=== PATIENT | male | born 2000 | race Two or more races ===

== ENCOUNTER 2024-05-22 14:51 | Emergency (ER) | payer BC, SELFPAY ==
[2024-05-22 14:51] VITALS: BP 124/85; PULSE 102; RESP 18; TEMP 36.8; O2SAT 96
--- NOTE | 2024-05-22 14:59 | ED.URI ---
HPI - URI/Sore Throat General Chief Complaint: Upper Respiratory Infection Stated Complaint: sore throat Time Seen by Provider: 05/22/24 14:58 Source: patient Mode of arrival: ambulatory Limitations: no limitations History of Present Illness HPI Narrative: Patient is a 23-year-old male with cough and congestion of the upper chest and throat area. No shortness of breath. No chest pain. He is having fatigue. He has been sick for 4 days. MD elicited complaint: cough and nasal congestion Onset (ago): day(s) (4) Consistency: constant Severity: moderate Pain scale (0-10): 1 Description of mucous: clear, watery and yellow Able to tolerate fluids by mouth: Yes Exacerbating factors: nothing Relieving factors: nothing Associated symptoms: myalgias and nasal congestion Treatments prior to arrival: acetaminophen, ibuprofen and cold medicine Related Data Home Medications Medication Instructions Recorded Confirmed No Home Medications 02/25/22 02/17/23 Allergies Allergy/AdvReac Type Severity Reaction Status Date / Time pineapple Allergy Anaphylaxis Verified 02/17/23 08:08 shrimp Allergy Anaphylaxis Verified 02/17/23 08:08 Review of Systems Review of Systems: All systems reviewed & are unremarkable except as noted in HPI and below Constitutional: Constitutional: Reports no additional constitutional complaints Eyes: Eyes: Reports no additional eye complaints ENT: Reports system reviewed and no additional complaints, except as documented Cardiovascular: Cardiovascular: Reports no additional cardiovascular complaints Respiratory: Respiratory: Reports no additional respiratory complaints Gastrointestinal: Gastrointestinal: Reports no additional gastrointestinal complaints Genitourinary: Genitourinary: Reports no additional male genitourinary complaints Musculoskeletal: Musculoskeletal: Reports no additional musculoskeletal complaints Integumentary/Breasts: Skin/Breast: Reports system reviewed and no additional complaints, except as docu Neurologic: Reports system reviewed and no additional complaints, except as documented Psychiatric: Psychiatric: Reports no additional psychiatric complaints Endocrine: Endocrine: Reports no additional endocrine complaints Hematologic/Lymphatic: Hematologic/Lymphatic: Reports no additional hematologic/lymphatic complaints Allergic/Immunologic: Allergic/Immunologic: Reports no additional allergic/immunologic complaints PMFSH Social History Social History Smoking status: Current some day smoker Tobacco type: cigarettes and e-cigarettes/vaping Alcohol intake: current Substance use: current Substance use type: marijuana Exam Const: General: healthy appearing Nutritional Appearance: well nourished Orientation/consciousness: patient oriented x3 HENMT: Head: normal to inspection Ears: external ears normal Face/Nose/Sinus: Normal external nose present Eyes: Conjunctivae: conjunctivae normal Pupils: Equal, round and reactive pupils present EOM: EOMs intact bilaterally Neck: Neck: normal visual inspection Chest: Chest palpation & inspection: normal inspection of the chest Resp: Effort & Inspection: normal respiratory effort and not labored Auscultation: clear to auscultation bilaterally and no crackles Cardio: Rate: regular rate Rhythm: regular rhythm Heart sounds: no murmurs GI: Inspection: non-distended GI Palp: Yes Soft to palpation and No Tenderness to palpation present (GI) Auscultation: normal bowel sounds : General: Yes bladder normal to palpation Back/Spine/Pelvis: Back: no CVA tenderness Skin: General skin exam: normal color Rashes: no rashes Wounds: no wounds Neuro: General: patient oriented x3 Cranial nerves: Yes Nystagmus not present Speech: normal speech Extrem: General: normal to inspection Psych: Mental Status: mental status grossly normal Affect: normal affect Attitu
[2024-05-22 15:26] LABS: Strep Group A RT-PCR NOT DETECTED (Negative)
[2024-05-22 15:37] LABS: SARS-CoV-2 RNA PCR Positive (Negative)
[2024-05-22 15:42] LABS: Influenza A QL RT-PCR Negative (Negative); Influenza B QL RT-PCR Negative (Negative); RSV RNA, RT-PCR Negative (Negative)
== END 2024-05-22 15:52 | disposition home or self-care (01) ==
PROVIDERS: Emergency Provider Emergency Medicine; PCP Nurse Practitioner Family
DX: U07.1 COVID-19 (principal); F17.210 Nicotine dependence, cigarettes, uncomplicated
CPT/HCPCS: 87637; 87651; 99283

== ENCOUNTER 2025-01-15 03:18 | Emergency (ER) | payer SELFPAY ==
--- NOTE | ~2025-01-15 | XR_ITS ---
XR chest 1V Ordering provider: Santos Sandoval MD History: 24 years Male with . RIGHT SIDE CHEST PAIN X 2 DAYS. . Comparison: None. FINDINGS: MEDIASTINUM: The cardiac silhouette is not enlarged. LUNGS: No infiltrates, effusions or pneumothorax. OTHER: No free air under the diaphragm. IMPRESSION: No acute cardiopulmonary pathology. Reviewed, dictated and finalized at location A.
[2025-01-15 03:18] VITALS: BP 123/82; PULSE 72; RESP 18; TEMP 36.6; O2SAT 99
--- OUTSIDE RECORDS SUMMARY | 2025-01-15 03:21 | XMS_ITS | Encounter Summary ---
Author Organization [facility] Address [address] [place] [address] Care Team Providers Care Tape Weaver Name Role Phone None, Provider Primary Care Provider Unavaila ble Encounter Details Date Type Department Care Team (Late st Contact Info) Description 09/16/2021 Hospital Follow-up Call [facility] [address] [place] [address] Cherry Arauz RN Social History Tobacco Use Types Packs/Day Years Used Date Smoking Tobacco: Former Smokeless Tobacco: Never Alcohol Use Standard Drinks/Week Comments Never 0 (1 standard drink = 0.6 oz pur e alcohol) Sex and Gender Information Value Date Recorded Sex Assigned at Not on file Legal Sex Male 9:13 PM ANIMAL CARE GIVER Gender Identity Not on file Sexual Orientation Not on file COVID-19 Exposure Response Date Recorded In the last month, have you been in contact with someone who was confirmed or suspected to have Coronavirus / COVID-19? No / Unsure 09/13/2021 9:08 PM ANIMAL CARE GIVER documented as of this encounter Functional Status * RETIRED Are you deaf or do you have serious difficulty hearing Answer Date of Assessment Author Status No 09/13/2021 9:08 PM ANIMAL CARE GIVER Activ e * RETIRED Are you blind or do you have serious difficulty seeing, even when wearing glasses? Answer Date of Assessment Author Status No 09/13/2021 9:08 PM ANIMAL CARE GIVER Activ e * Do you have serious difficulty walking or climbing stairs? Answer Date of Assessment Author Status No 09/13/2021 9:08 PM ANIMAL CARE GIVER Lauren Lazcano R N Active * Do you have difficulty dressing or bathing? Answer Date of Assessment Author Status No 09/13/2021 9:08 PM ANIMAL CARE GIVER Lauren Lazcano R N Active * Because of a physical, mental, or emotional condition, do you have difficulty doing errands alone such as visiting a doctor's office or shopping? Answer Date of Assessment Author Status No 09/13/2021 9:08 PM ANIMAL CARE GIVER Lauren Lazcano R N Active documented as of this encounter Mental Status * Because of a physical, mental, or emotional condition, do you have serious difficulty concentrating, remembering, or making decisions? Answer Entry Date Author Status No 09/13/2021 9:08 PM ANIMAL CARE GIVER Lauren Lazcano R N Active documented in this encounter Plan of Treatment Not on file documented as of this encounter Visit Diagnoses Not on filedocumented in this encounter Additional Health Concerns Infection Onset Date Last Indicated Resolved Time COVID-19 Rule Out 08/14/2022 08/14/2022 08/14/2022 11:35 AM ANIMAL CARE GIVER Influenza - Seasonal 08/14/2022 08/14/2022 023 12:34 AM ANIMAL CARE GIVER documented as of this encounter Care Teams Tape Weaver Relationship Specialty Start Date End Date None, Provider, PCP - General 09/13/21 documented as of this encounter
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
[2025-01-15 03:30] VITALS: BP 111/75; PULSE 75; RESP 10; O2SAT 94
--- NOTE | 2025-01-15 03:36 | PC.NURSE ---
NOTIFIED DR MARRERO OF NEW PATIENT. VERBAL ORDER RECEIVED TO PLACE CHEST XRAY ORDER, DONE
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
--- NOTE | 2025-01-15 03:38 | PC.NURSE ---
YAZAN WITH RADIOLOGY AT THE BEDSIDE
--- NOTE | 2025-01-15 03:45 | PC.NURSE ---
DR MARRERO AT THE BEDSIDE
[2025-01-15] MEDS: KETOROLAC 30 MG/ML VIAL (*BKC) IM (04:03)
[2025-01-15 04:30] VITALS: BP 116/74; PULSE 72; RESP 16; O2SAT 99
== END 2025-01-15 04:30 | disposition home or self-care (01) ==
PROVIDERS: Emergency Provider Internal Medicine Critical Care Medicine; PCP Family Medicine
DX: S22.31XA Fracture of one rib, right side, initial encounter for closed fracture (principal); F17.210 Nicotine dependence, cigarettes, uncomplicated; X58.XXXA Exposure to other specified factors, initial encounter
CPT/HCPCS: 71045; 96372; 99283; J1885

== ENCOUNTER 2025-03-26 19:27 | Emergency (ER) | payer SELFPAY ==
[2025-03-26 19:30] VITALS: BP 143/97; PULSE 123; RESP 16; TEMP 37.9; O2SAT 94
--- OUTSIDE RECORDS SUMMARY | 2025-03-26 19:30 | XMS_ITS | Encounter Summary ---
Author Organization [facility] Address [address] [place] [address] Care Team Providers Care Manager Linux Name Role Phone None, Provider Primary Care Provider Unavaila ble Encounter Details Date Type Department Care Team (Late st Contact Info) Description 09/16/2021 Hospital Follow-up Call [facility] [address] [place] [address] Cherry Arauz RN Social History Tobacco Use Types Packs/Day Years Used Date Smoking Tobacco: Former Smokeless Tobacco: Never Alcohol Use Standard Drinks/Week Comments Never 0 (1 standard drink = 0.6 oz pur e alcohol) Sex and Gender Information Value Date Recorded Sex Assigned at Not on file Legal Sex Male 9:13 PM STOCK UNLOADER Gender Identity Not on file Sexual Orientation Not on file COVID-19 Exposure Response Date Recorded In the last month, have you been in contact with someone who was confirmed or suspected to have Coronavirus / COVID-19? No / Unsure 09/13/2021 9:08 PM STOCK UNLOADER documented as of this encounter Functional Status * RETIRED Are you deaf or do you have serious difficulty hearing Answer Date of Assessment Author Status No 09/13/2021 9:08 PM STOCK UNLOADER Activ e * RETIRED Are you blind or do you have serious difficulty seeing, even when wearing glasses? Answer Date of Assessment Author Status No 09/13/2021 9:08 PM STOCK UNLOADER Activ e * Do you have serious difficulty walking or climbing stairs? Answer Date of Assessment Author Status No 09/13/2021 9:08 PM STOCK UNLOADER Lauren Lazcano R N Active * Do you have difficulty dressing or bathing? Answer Date of Assessment Author Status No 09/13/2021 9:08 PM STOCK UNLOADER Lauren Lazcano R N Active * Because of a physical, mental, or emotional condition, do you have difficulty doing errands alone such as visiting a doctor's office or shopping? Answer Date of Assessment Author Status No 09/13/2021 9:08 PM STOCK UNLOADER Lauren Lazcano R N Active documented as of this encounter Mental Status * Because of a physical, mental, or emotional condition, do you have serious difficulty concentrating, remembering, or making decisions? Answer Entry Date Author Status No 09/13/2021 9:08 PM STOCK UNLOADER Lauren Lazcano R N Active documented in this encounter Plan of Treatment Not on file documented as of this encounter Visit Diagnoses Not on filedocumented in this encounter Additional Health Concerns Infection Onset Date Last Indicated Resolved Time COVID-19 Rule Out 08/14/2022 08/14/2022 08/14/2022 11:35 AM STOCK UNLOADER Influenza - Seasonal 08/14/2022 08/14/2022 023 12:34 AM STOCK UNLOADER documented as of this encounter Care Teams Manager Linux Relationship Specialty Start Date End Date None, Provider, PCP - General 09/13/21 documented as of this encounter
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
--- OUTSIDE RECORDS SUMMARY | 2025-03-26 19:54 | XMS_ITS | Encounter Summary ---
Author Organization [facility] Address [address] [place] [address] Care Team Providers Care Center Specialists Name Role Phone None, Provider Primary Care Provider Unavaila ble Encounter Details Date Type Department Care Team (Late st Contact Info) Description 09/16/2021 Hospital Follow-up Call [facility] [address] [place] [address] Cherry Arauz RN Social History Tobacco Use Types Packs/Day Years Used Date Smoking Tobacco: Former Smokeless Tobacco: Never Alcohol Use Standard Drinks/Week Comments Never 0 (1 standard drink = 0.6 oz pur e alcohol) Sex and Gender Information Value Date Recorded Sex Assigned at Not on file Legal Sex Male 9:13 PM [employer] Gender Identity Not on file Sexual Orientation Not on file COVID-19 Exposure Response Date Recorded In the last month, have you been in contact with someone who was confirmed or suspected to have Coronavirus / COVID-19? No / Unsure 09/13/2021 9:08 PM [employer] documented as of this encounter Functional Status * RETIRED Are you deaf or do you have serious difficulty hearing Answer Date of Assessment Author Status No 09/13/2021 9:08 PM [employer] Activ e * RETIRED Are you blind or do you have serious difficulty seeing, even when wearing glasses? Answer Date of Assessment Author Status No 09/13/2021 9:08 PM [employer]DEL [employer] Activ e * Do you have serious difficulty walking or climbing stairs? Answer Date of Assessment Author Status No 09/13/2021 9:08 PM [employer] Lauren Lazcano R N Active * Do you have difficulty dressing or bathing? Answer Date of Assessment Author Status No 09/13/2021 9:08 PM [employer] Lauren Lazcano R N Active * Because of a physical, mental, or emotional condition, do you have difficulty doing errands alone such as visiting a doctor's office or shopping? Answer Date of Assessment Author Status No 09/13/2021 9:08 PM [employer] Lauren Lazcano R N Active documented as of this encounter Mental Status * Because of a physical, mental, or emotional condition, do you have serious difficulty concentrating, remembering, or making decisions? Answer Entry Date Author Status No 09/13/2021 9:08 PM [employer] Lauren Lazcano R N Active documented in this encounter Plan of Treatment Not on file documented as of this encounter Visit Diagnoses Not on filedocumented in this encounter Additional Health Concerns Infection Onset Date Last Indicated Resolved Time COVID-19 Rule Out 08/14/2022 08/14/2022 08/14/2022 11:35 AM [employer] Influenza - Seasonal 08/14/2022 08/14/2022 023 12:34 AM [employer] documented as of this encounter Care Teams Center Specialists Relationship Specialty Start Date End Date None, Provider, PCP - General 09/13/21 documented as of this encounter
--- NOTE | 2025-03-26 20:03 | ED_ITS ---
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 Associated fever. MD elicited complaint: fever, cough, sore throat, rhinorrhea and nasal congestion Pertinent past history: other ( Negative) Onset (ago): week(s) ( 2-3) Consistency: constant Severity: moderate Pain scale (0-10): 1 Description of mucous: yellow Able to tolerate fluids by mouth: Yes Exacerbating factors: nothing Relieving factors: nothing Context: other ( patient having multiple respiratory and ENT complaints over the past 2-3 weeks which are progressively getting worse) Associated symptoms: fever ( noted tonight), voice changes, myalgias, nasal congestion and cough Treatments prior to arrival: none Related Data Allergies Allergy/AdvReac Type Severity Reaction Status Date / Time pineapple Allergy Anaphylaxis Verified 02/17/23 08:08 shrimp Allergy Anaphylaxis Verified 02/17/23 08:08 Review of Systems Review of Systems: All systems reviewed & are unremarkable except as noted in HPI and below Constitutional: Constitutional: Reports no additional constitutional complaints Eyes: Eyes: Reports no additional eye complaints ENT: Reports system reviewed and no additional complaints, except as documented Cardiovascular: Cardiovascular: Reports no additional cardiovascular complaints Respiratory: Respiratory: Reports no additional respiratory complaints Gastrointestinal: Gastrointestinal: Reports no additional gastrointestinal complaints Genitourinary: Genitourinary: Reports no additional male genitourinary complaints Musculoskeletal: Musculoskeletal: Reports no additional musculoskeletal complaints Integumentary/Breasts: Skin/Breast: Reports system reviewed and no additional complaints, except as docu Neurologic: Reports system reviewed and no additional complaints, except as documented Psychiatric: Psychiatric: Reports no additional psychiatric complaints Endocrine: Endocrine: Reports no additional endocrine complaints Hematologic/Lymphatic: Hematologic/Lymphatic: Reports no additional hematologic/lymphatic complaints Allergic/Immunologic: Allergic/Immunologic: Reports no additional aureliano rgic/immunologic complaints PMFSH Social History Social History Smoking status: Current some day smoker Tobacco type: cigarettes and e-cigarettes/vaping Alcohol intake: current Substance use: current Substance use type: marijuana Exam Const: General: no acute distress Nutritional Appearance: well nourished Orientation/consciousness: patient oriented x3 Limitations: no limitations HENMT: Head: normal to inspection Ears: external ears normal Face/Nose/Sinus: Normal external nose present Mouth: Yes Normal oral and palatal mucosa present Throat: posterior oropharynx abnormal Other: red posterior oropharynx without tonsillar hypertrophy or pus Eyes: Conjunctivae: conjunctivae normal Pupils: Equal, round and reactive pupils present EOM: EOMs intact bilaterally Neck: Neck: normal visual inspection Chest: Chest palpation & inspection: normal inspection of the chest Resp: Effort & Inspection: normal respiratory effort and not labored Auscultation: clear to auscultation bilaterally, no crackles, no rales, rhonchi ( bilateral lower lobes), wheezes ( bilateral lower lobes), breath sounds present and diminished lung sounds ( throughout diffusely) Cardio: Rate: regular rate Rhythm: regular rhythm Heart sounds: no murmurs GI: Inspection: non-distended GI Palp: Yes Soft to palpation and No Tenderness to palpation present (GI) Auscultation: normal bowel sounds : General: Yes bladder normal to palpation Back/Spine/Pelvis: Back: no CVA tenderness Skin: General skin exam: normal color Rashes: no rashes Wounds: no wounds Neuro: General: patient oriented x3 Cranial nerves: Yes Nystagmus not present Speech: normal speech Gait exam (Neuro): Normal gait present Extrem: General: normal to inspection Psych: Mental Status: mental status grossly normal Affect: normal affect Attitude: cooperative Course Vital Signs Vital signs: Vital Signs Temperature 37.9 C H 03/26/25 19:30 Pulse Rate 123 H 03/26/25 19:30 Respiratory Rate 16 03/26/25 19:30 Blood Pressure 143/97 H 03/26/25 19:30 Pulse Oximetry 94 03/26/25 19:30 Oxygen Delivery Room Air 03/26/25 19:30 Temperature 37.9 C H 03/26/25 19:30 Pulse Rate 123 H 03/26/25 19:30 Respiratory Rate 16 03/26/25 19:30 Blood Pressure 143/97 H 03/26/25 19:30 Pulse Oximetry 94 03/26/25 19:30 Oxygen Delivery Room Air 03/26/25 19:30 MDM - URI/Sore Throat MDM Narrative Medical decision making narrative: patient is a 24-year-old male with upper respiratory complaints as well as lower respiratory complaints here for evaluation. COVID panel and strep test done. Negative testing. Based on his lung exam and chronicity of the complaints of cough we will proceed with antibiotics. Lab Data Attestation: I reviewed the patient's lab results. Labs: Lab Results 03/26/25 Range/Units 19:30 Influenza A (RT-PCR) Negative (Negative) Influenza B (RT-PCR) Negative (Negative) RSV (RT-PCR) Negative (Negative) SARS-CoV-2 RNA (RT-PCR) Negative (Negative) Group A Strep (PCR) Not detected (Negative) Discharge Plan Discharge Clinical Impression: Acute bacterial bronchitis Patient Disposition: Home Condition: Stable Instructions: Antibiotic Form, Acute Bronchitis (ED) Patient Language: Occitan Prescriptions: New prednisone 20 mg tablet 40 mg PO DAILY 3 Days Qty: 6 0RF azithromycin 250 mg tablet See Rx Instructions .ROUTE .COMPLEX Qty: 6 0RF Rx Instructions: For 250 mg dose pack: take 500 mg today (day 1), then 250 mg for 4 days (days 2-5) No Action diclofenac sodium 75 mg tablet,delayed release (DR/EC) 75 mg PO BID PRN (Reason: pain) Qty: 20 0RF Follow-up/Referrals: Ayad Roa MD [Physician] - PHYSICIAN,ALLERGY PHYSICIAN [Primary Care Provider] - Time of Disposition: 20:41
[2025-03-26 20:04] LABS: Strep Group A RT-PCR NOT DETECTED (Negative)
--- NOTE | 2025-03-26 20:05 | PC.NURSE ---
PATIENT RESTING ON STRETCHER. NO NEEDS VOICED AT THIS TIME. WILL MONITOR
[2025-03-26 20:17] LABS: Influenza A QL RT-PCR Negative (Negative); Influenza B QL RT-PCR Negative (Negative); RSV RNA, RT-PCR Negative (Negative); SARS-CoV-2 RNA PCR Negative (Negative)
[2025-03-26] MEDS: AZITHROMYCIN 250 MG TABLET 500 MG PO (20:40)
[2025-03-26 21:06] VITALS: BP 128/72; PULSE 92; RESP 18; O2SAT 100
== END 2025-03-26 21:06 | disposition home or self-care (01) ==
PROVIDERS: Emergency Provider Emergency Medicine; Referring Provider Internal Medicine
DX: J20.9 Acute bronchitis, unspecified (principal); F17.210 Nicotine dependence, cigarettes, uncomplicated; Z20.822 Contact with and (suspected) exposure to COVID-19
CPT/HCPCS: 87637; 87651; 99283; A9270; J7512